=== PATIENT | male | born 1980 | race Caucasian/White ===

== ENCOUNTER 2017-02-01 15:42 | Emergency (ER) | payer BC ==
[~2017-02-01] VITALS: Ht 172.7 cm; Wt 113.4 kg
[2017-02-01 15:42] VITALS: BP_SYST 141
[~2017-02-01 15:42] MED LIST: CLON2TAB4 PO; DIVA500T7 PO; IBUP-1480 PO; OXYC-133 PO
[2017-02-01 16:26] LABS: BILIRUBIN,URINE NEGATIVE (NEGATIVE); BLOOD, URINE NEGATIVE (NEGATIVE); CLARITY/URINE CLEAR (CLEAR); COLOR,URINE YELLOW (YELLOW); GLUCOSE,URINE NEGATIVE (NEGATIVE); KETONES,URINE NEGATIVE (NEGATIVE); LEUKOCYTE ESTERASE ,URINE NEGATIVE (NEGATIVE); NITRITE, URINE NEGATIVE (NEGATIVE); PH,URINE 5.5 (5.0-8.0); PROTEIN URINE NEGATIVE (NEGATIVE); UROBILINOGEN,URINE 0.2 (0.2-1.0)
[2017-02-01 16:35] LABS: RBC,URINE 0-3 /HPF (0-3)
[2017-02-01 16:36] LABS: BACTERIA,URINE FEW /HPF (None Seen); MUCUS,URINE None Seen /LPF (None Seen)
[2017-02-01 17:46] VITALS: BP_SYST 135
== END 2017-02-01 17:40 | disposition home or self-care (01) ==
LOC: SED 15:42
DX: N20.0 Calculus of kidney (principal); E66.9 Obesity, unspecified; Z68.38 Body mass index [BMI] 38.0-38.9, adult; Z79.899 Other long term (current) drug therapy
CPT/HCPCS: 81000-TC; 81003; 99285

== ENCOUNTER 2017-11-07 18:03 | Emergency (ER) | payer BC ==
[~2017-11-07] VITALS: Ht 165.1 cm; Wt 89.8 kg
[~2017-11-07 18:03] MED LIST changes: +CLON2TAB11 PO; -CLON2TAB4 PO; -IBUP-1480 PO; +IBUP-1970 PO
[2017-11-07 18:26] VITALS: BP_SYST 124
[2017-11-07] MEDS ORDERED: fentaNYL CITRATE/PF 100 MCG/2 ML AMP IM ONE (19:45)
[2017-11-07] MEDS ORDERED: DIPHENHYDRAMINE INJ 50 MG/ML VIAL IM ONE (19:45)
[2017-11-07 20:56] LABS: BILIRUBIN,URINE NEGATIVE (NEGATIVE); BLOOD, URINE NEGATIVE (NEGATIVE); CLARITY/URINE CLEAR (CLEAR); COLOR,URINE YELLOW (YELLOW); GLUCOSE,URINE NEGATIVE (NEGATIVE); KETONES,URINE NEGATIVE (NEGATIVE); LEUKOCYTE ESTERASE ,URINE NEGATIVE (NEGATIVE); NITRITE, URINE NEGATIVE (NEGATIVE); PROTEIN URINE NEGATIVE (NEGATIVE); UROBILINOGEN,URINE 0.2 (0.2-1.0)
[2017-11-07] MEDS ORDERED: METHOCARBAMOL 500 MG TABLET PO ONE (21:00)
[2017-11-07 21:12] VITALS: BP_SYST 122
== END 2017-11-07 21:12 | disposition home or self-care (01) ==
LOC: SED 18:03
DX: M62.830 Muscle spasm of back (principal); Z79.899 Other long term (current) drug therapy
CPT/HCPCS: 81003; 96372; 99284; J1200; J3010

== ENCOUNTER 2017-12-20 17:28 | Emergency (ER) | payer BC ==
[~2017-12-20] VITALS: Ht 165.1 cm; Wt 81.6 kg
[2017-12-20 17:39] VITALS: BP_SYST 156
[2017-12-20] MEDS ORDERED: NACL 0.9% 1,000 ML IV ONE (18:45)
[2017-12-20 19:06] LABS: EOSINOPHILS # (AUTO) 0.1 K/uL (0.0-0.4)
[2017-12-20 19:14] LABS: LYMPHOCYTES # (AUTO) 3.4 K/uL (1.0-5.5)
[2017-12-20 19:18] LABS: BILIRUBIN,URINE NEGATIVE (NEGATIVE); BLOOD, URINE NEGATIVE (NEGATIVE); CLARITY/URINE CLEAR (CLEAR); COLOR,URINE YELLOW (YELLOW); GLUCOSE,URINE NEGATIVE (NEGATIVE); KETONES,URINE NEGATIVE (NEGATIVE); LEUKOCYTE ESTERASE ,URINE NEGATIVE (NEGATIVE); NITRITE, URINE NEGATIVE (NEGATIVE); PROTEIN URINE NEGATIVE (NEGATIVE); UROBILINOGEN,URINE 0.2 (0.2-1.0)
[2017-12-20 19:19] LABS: CALCIUM 9.2 mg/dL (8.4-11.0); CREATININE 0.71 mg/dL (0.55-1.30); POTASSIUM 3.3 mmol/L (3.5-5.1)
[2017-12-20 19:22] LABS: BASOPHILS # (AUTO) 0.1 K/uL (0.0-0.2); BASOPHILS % (AUTO) 1.4 % (0.0-2.0); EOSINOPHILS % (AUTO) 1.1 % (0.0-4.0); HEMATOCRIT 40.4 % (36-54); HEMOGLOBIN 14.3 g/dL (14.0-18.0); LYMPHOCYTES % (AUTO) 32.2 % (20.5-51.5); MEAN CORPUSCULAR HEMOGLOBIN 33 pg (27-31); MEAN CORPUSCULAR HGB CONC 35 % (32-36); MEAN CORPUSCULAR VOLUME 94 fL (79.0-98.0); MONOCYTES # (AUTO) 0.6 K/uL (0.0-1.0); MONOCYTES % (AUTO) 5.5 % (1.7-9.3); NEUTROPHILS # (AUTO) 6.3 K/uL (1.8-7.7); NEUTROPHILS % (AUTO) 59.8 % (40.0-70.0); RED BLOOD CELL COUNT(AUTO) 4.32 MIL/uL (4.2-6.2); RED CELL DISTRIBUTION WIDTH 12.7 % (9.0-15.0); WHITE BLOOD COUNT (AUTO) 10.5 K/uL (4.8-10.8)
[2017-12-20 19:24] LABS: ALBUMIN 3.8 g/dL (3.4-4.8); TOTAL BILIRUBIN 0.5 mg/dL (0.0-1.0)
[2017-12-20 19:25] LABS: PLATELET COUNT (AUTO) 295 K/uL (130-430)
[2017-12-20 20:05] LABS: BARBITURATE, URINE NEGATIVE (NEG <=200); BENZODIAZEPINE, URINE NEGATIVE (NEG <=150); CANNABINOID, URINE POSITIVE (NEG <=50); COCAINE, URINE NEGATIVE (NEG <=150); METHAMPHETAMINES SCREEN,URINE NEGATIVE (NEG <=500); OPIATE, URINE NEGATIVE (NEG <=100); PHENCYCLIDINE SCREEN,URINE NEGATIVE (NEG <=25); UR TRICYCLIC ANTIDEPRESSANTS NEGATIVE (NEG <=300); URINE AMPHETAMINE NEGATIVE (NEG <=500); URINE METHADONE NEGATIVE (NEG <=200); URINE OXYCODONE SCREEN POSITIVE (NEG <=100); URINE PROPOXYPHENE SCREEN NEGATIVE (NEG <=300)
[2017-12-20] MEDS ORDERED: LORazepam 2 MG/ML VIAL (FOR ER USE) IVP ONE (20:45)
[2017-12-20] MEDS ORDERED: METOCLOPRAMIDE HCL 10 MG/2 ML VIAL IVP ONE (20:45)
[2017-12-20] MEDS ORDERED: DIPHENHYDRAMINE INJ 50 MG/ML VIAL IVP ONE (20:45)
[2017-12-20] MEDS ORDERED: FAMOTIDINE PF 20 MG/2 ML VIAL IVP ONE (21:00)
[2017-12-20 21:50] VITALS: BP_SYST 142
== END 2017-12-20 21:50 | disposition home or self-care (01) ==
LOC: SED 17:28
DX: F41.9 Anxiety disorder, unspecified (principal); G89.4 Chronic pain syndrome; R10.13 Epigastric pain; R11.2 Nausea with vomiting, unspecified; F11.20 Opioid dependence, uncomplicated; F12.188 Cannabis abuse with other cannabis-induced disorder; K21.9 Gastro-esophageal reflux disease without esophagitis; Z90.89 Acquired absence of other organs; Z79.899 Other long term (current) drug therapy
CPT/HCPCS: 36415; 74176; 80053; 80307; 81003; 83690; 85025; 96361; 96374; 96375; 99285; J1200; J2060; J2765; J3490; J7030

== ENCOUNTER 2020-12-22 17:31 | Emergency (ER) | payer BC ==
[~2020-12-22] VITALS: Ht 165.1 cm; Wt 86.6 kg
[~2020-12-22 17:31] MED LIST changes: +DIVA-74 PO; -DIVA500T7 PO
[2020-12-22 17:35] VITALS: BP_SYST 127
[2020-12-22 18:43] LABS: BASOPHILS # (AUTO) 0.1 K/uL (0.0-0.2); BASOPHILS % (AUTO) 1.3 % (0.0-2.0); EOSINOPHILS # (AUTO) 0.1 K/uL (0.0-0.4); EOSINOPHILS % (AUTO) 1.4 % (0.0-4.0); HEMOGLOBIN 14.2 g/dL (14.0-18.0); LYMPHOCYTES # (AUTO) 4.3 K/uL (1.0-5.5); LYMPHOCYTES % (AUTO) 42.5 % (20.5-51.5); MEAN CORPUSCULAR HEMOGLOBIN 33 pg (27-31); MEAN CORPUSCULAR HGB CONC 34 % (32-36); MEAN CORPUSCULAR VOLUME 96 fL (79.0-98.0); MONOCYTES # (AUTO) 0.8 K/uL (0.0-1.0); MONOCYTES % (AUTO) 7.8 % (1.7-9.3); NEUTROPHILS # (AUTO) 4.8 K/uL (1.8-7.7); PLATELET COUNT (AUTO) 313 K/uL (130-430); RED BLOOD CELL COUNT(AUTO) 4.37 MIL/uL (4.2-6.2); RED CELL DISTRIBUTION WIDTH 13.2 % (9.0-15.0); WHITE BLOOD COUNT (AUTO) 10.2 K/uL (4.8-10.8)
[2020-12-22 19:16] LABS: CALCIUM 9.5 mg/dL (8.4-11.0); CREATININE 0.9 mg/dL (0.55-1.30); POTASSIUM 4.3 mmol/L (3.5-5.1)
[2020-12-22 19:27] LABS: INR 0.9 (0.80-1.20)
[2020-12-22 19:29] LABS: ALBUMIN 3.7 g/dL (3.4-4.8); TOTAL BILIRUBIN 0.1 mg/dL (0.0-1.0)
--- NOTE | 2020-12-22 20:25 | NUR ---
Patient to ER bed H1 to gown for evaluation. Side rails up. Report given to GIACOMO ZIMMERMAN.
--- NOTE | 2020-12-22 21:24 | NUR ---
DR. SANCHEZ AT BEDSIDE FOR EVALUATION.
--- NOTE | 2020-12-22 21:40 | NUR ---
PATIENT AAOX4 AND AMBULATORY FROM HOME C/O CHRONIC ABDOMINAL PAIN WITH BLOOD IN STOOL X 3 DAYS NOW. CURRENTLY STATING 6/10 ON THE PAIN SCALE. PER PATIENT THE BLOOD IS BRIGHT RED. VSS. HAS REFERAL TO SEE GI SPECIALIST BUT NEEDS TO SCHEDULE APPOINTMENT.
[2020-12-22 22:00] VITALS: BP_SYST 127
--- NOTE | 2020-12-22 22:22 | NUR ---
Patient given written and verbal discharge instructions and verbalizes understanding. DR. DANIEL MOSQUERA MD discussed with patient the results and treatment provided. Patient in stable condition. ID arm band removed. Patient educated on pain management and to follow up with PMD. Pain Scale 0/10. Opportunity for questions provided and answered. Medication side effect fact sheet provided.
== END 2020-12-22 22:00 | disposition home or self-care (01) ==
LOC: SED 17:31
DX: K92.2 Gastrointestinal hemorrhage, unspecified (principal); K21.9 Gastro-esophageal reflux disease without esophagitis; Z79.899 Other long term (current) drug therapy
CPT/HCPCS: 36415; 71045; 76376; 80053; 81002; 85025; 85610-TC; 85730-TC; 86886; 86900; 86901; 93005; 99285

== ENCOUNTER 2021-08-23 20:57 | Emergency (ER) | payer BC ==
[~2021-08-23] VITALS: Ht 165.1 cm; Wt 87.5 kg
[2021-08-23 21:32] VITALS: BP_SYST 165
[2021-08-23] MEDS ORDERED: IBUPROFEN 800 MG TABLET PO ONE (23:45)
[2021-08-24] MEDS ORDERED: IBUP-1971 PO (00:44)
[2021-08-24] MEDS ORDERED: HYDROcodone/ACETAMIN 10-325 MG TAB PO ONE (00:45)
[2021-08-24 02:21] VITALS: BP_SYST 148
== END 2021-08-24 01:30 | disposition home or self-care (01) ==
LOC: SED 20:57
DX: S89.91XA Unspecified injury of right lower leg, initial encounter (principal); K21.9 Gastro-esophageal reflux disease without esophagitis; R56.9 Unspecified convulsions; W21.05XA Struck by basketball, initial encounter; Y93.89 Activity, other specified; Y92.89 Other specified places as the place of occurrence of the external cause; Y99.8 Other external cause status
CPT/HCPCS: 73564; 99283